=== PATIENT | female | born 1955 | race Caucasian/White ===

== ENCOUNTER → 2023-09-26 09:22 | Outpatient (REF) | payer MEDICARE, OTHER, SELFPAY | LOC: RAD 09:22 | PROVIDERS: ATTENDING PHYSICIAN Nurse Practitioner Obstetrics & Gynecology; FAMILY PHYSICIAN Family Medicine; REFERRING PHYSICIAN Internal Medicine Endocrinology, Diabetes & Metabolism | DX: M81.0 Age-related osteoporosis without current pathological fracture (principal) | CPT/HCPCS: 77080 ==

== ENCOUNTER → 2023-11-12 12:42 | Outpatient (REF) | payer MEDICARE, OTHER, SELFPAY | LOC: WDC 12:42 | PROVIDERS: ATTENDING PHYSICIAN Nurse Practitioner Obstetrics & Gynecology; FAMILY PHYSICIAN Family Medicine | DX: Z12.31 Encounter for screening mammogram for malignant neoplasm of breast (principal) | CPT/HCPCS: 77063; 77067 ==

== ENCOUNTER 2023-12-03 08:45 | Outpatient (RCR) | payer MEDICARE, OTHER, SELFPAY | END 2023-12-03 23:59 | disposition home or self-care (01) | LOC: RPT 08:45 | PROVIDERS: ATTENDING PHYSICIAN Physician Assistant Surgical; FAMILY PHYSICIAN Family Medicine | DX: R29.898 Other symptoms and signs involving the musculoskeletal system (principal); Z96.653 Presence of artificial knee joint, bilateral; Z00-Z99 Factors influencing health status and contact with health services | CPT/HCPCS: 97110; 97162 ==

== ENCOUNTER 2024-01-09 10:02 | Outpatient (RCR) | payer MEDICARE, OTHER, SELFPAY | END 2024-01-09 23:59 | disposition home or self-care (01) | LOC: RPT 10:02 | PROVIDERS: ATTENDING PHYSICIAN Physician Assistant Surgical; FAMILY PHYSICIAN Family Medicine | DX: R29.898 Other symptoms and signs involving the musculoskeletal system (principal); Z96.653 Presence of artificial knee joint, bilateral; Z73.6 Limitation of activities due to disability; M25.562 Pain in left knee; M25.561 Pain in right knee | CPT/HCPCS: 97110; 97140 ==

== ENCOUNTER 2024-01-16 10:03 | Outpatient (RCR) | payer MEDICARE, OTHER, SELFPAY | END 2024-01-16 15:51 | disposition home or self-care (01) | LOC: RPT 10:03 | PROVIDERS: ATTENDING PHYSICIAN Physician Assistant Surgical; FAMILY PHYSICIAN Family Medicine | DX: R29.898 Other symptoms and signs involving the musculoskeletal system (principal); Z96.653 Presence of artificial knee joint, bilateral; Z73.6 Limitation of activities due to disability | CPT/HCPCS: 97110 ==

== ENCOUNTER → 2024-09-05 14:47 | Outpatient (REF) | payer MEDICARE, OTHER, SELFPAY | LOC: PAVMRI 14:47 | PROVIDERS: ATTENDING PHYSICIAN Student in an Organized Health Care Education/Training Program; FAMILY PHYSICIAN Family Medicine | DX: S82.891A Other fracture of right lower leg, initial encounter for closed fracture (principal) | CPT/HCPCS: 73718 ==

== ENCOUNTER → 2024-10-28 08:27 | Outpatient (REF) | payer MEDICARE, OTHER, SELFPAY | LOC: RCS 08:27 | PROVIDERS: ATTENDING PHYSICIAN Internal Medicine Cardiovascular Disease; FAMILY PHYSICIAN Family Medicine | DX: I61.9 Nontraumatic intracerebral hemorrhage, unspecified (principal); Z82.3 Family history of stroke; Z82.79 Family history of other congenital malformations, deformations and chromosomal abnormalities | CPT/HCPCS: 93306 ==

== ENCOUNTER → 2024-11-12 11:25 | Outpatient (REF) | payer MEDICARE, OTHER, SELFPAY | LOC: WDC 11:25 | PROVIDERS: ATTENDING PHYSICIAN Family Medicine | DX: Z12.31 Encounter for screening mammogram for malignant neoplasm of breast (principal) | CPT/HCPCS: 77063; 77067 ==